=== PATIENT | female | born 1965 | race African-American/Black ===

== ENCOUNTER 2016-08-30 13:15 | Emergency (ER) | payer MEDICAID ==
[~2016-08-30] VITALS: Ht 167.6 cm; Wt 72.6 kg
--- NOTE | 2016-08-30 13:16 | NUR ---
Kin mcnair in [facility] - 08/30/16 at 1414 by [email or web address] Patient to bed 07 to [facility] for evaluation. Side rails up.
[2016-08-30 13:35] VITALS: BP 149/90; PULSE 89; RESP 16; TEMP 97.4; O2SAT 98
--- NOTE | 2016-08-30 14:05 | NUR ---
Patient to ER bed 7 to gown for evaluation. Side rails up. Report given to Megan ROBLES.
--- NOTE | 2016-08-30 14:06 | NUR ---
Pt brought by son, A&O x4, pt c/o L ankle pain and swelling, denies trauma, VS WNL,cap refill <3, no open areas or redness noted.
--- NOTE | 2016-08-30 14:12 | NUR ---
ER Dr. Napoles at bedside examining patient.
[2016-08-30] MEDS ORDERED: ACETAMINOPHEN 500 MG TABLET PO ONE (14:30)
--- NOTE | 2016-08-30 14:52 | NUR ---
US at bedside
--- NOTE | 2016-08-30 15:31 | NUR ---
Dr. Napoles at bedside updating patient
[2016-08-30 16:04] VITALS: BP 137/82; PULSE 86; RESP 16; TEMP 97.4; O2SAT 98
--- NOTE | 2016-08-30 16:04 | NUR ---
Patient given written and verbal discharge instructions and verbalizes understanding. ER MD discussed with patient the results and treatment provided. Patient in stable condition. ID arm band removed. Rx of Tramadol and lasix given. Patient educated on pain management and to follow up with PMD this week. Pain Scale 3/10 Opportunity for questions provided and answered.
== END 2016-08-30 16:04 | disposition home or self-care (01) ==
LOC: SED 13:15
DX: I87.8 Other specified disorders of veins (principal); Z91.041 Radiographic dye allergy status
CPT/HCPCS: 93971; 99284

== ENCOUNTER 2018-10-26 19:40 | Emergency (ER) | payer MEDICAID ==
[~2018-10-26] VITALS: Ht 165.1 cm; Wt 77.1 kg
[2018-10-26 19:56] VITALS: BP_SYST 107
[2018-10-26 23:26] VITALS: BP_SYST 107
== END 2018-10-26 23:26 | disposition home or self-care (01) ==
LOC: SED 19:40
DX: S63.502A Unspecified sprain of left wrist, initial encounter (principal); E78.00 Pure hypercholesterolemia, unspecified; Z91.041 Radiographic dye allergy status; W19.XXXA Unspecified fall, initial encounter; Y93.89 Activity, other specified; Y92.89 Other specified places as the place of occurrence of the external cause; Y99.8 Other external cause status
CPT/HCPCS: 99283

== ENCOUNTER 2020-10-08 08:33 | Emergency (ER) | payer MEDICAID ==
[~2020-10-08] VITALS: Ht 165.1 cm; Wt 77.1 kg
[2020-10-08 08:40] VITALS: BP_SYST 131
--- NOTE | 2020-10-08 08:47 | NUR ---
Patient to ER bed 05 to gown for evaluation. Side rails up.
--- NOTE | 2020-10-08 08:58 | NUR ---
C/C: PATIENT STATES SHE HAS BEEN HELPING A FRIEND REMODEL AN OLDER HOME, STATES SHE HAS BEEN HAVING SOB, SAWYER, SLIGHT NAUSEA X 2 DAYS. ACCORDING TO PATIENT THE HOME WAS TESTED FOR MOLD AND TESTING CAME BACK NEGATIVE. PATIENT ALSO STATES SHE HAS NUMBNESS AND TINGLING TO THE LEFT LOWER LEG RADIATES TO LEFT FOOT.
--- NOTE | 2020-10-08 09:52 | NUR ---
UA COLLECTED AND SENT TO LAB
--- NOTE | 2020-10-08 09:54 | NUR ---
INSTITUTIONAL COOK AT BEDSIDE COMPLETING BLOOD DRAW
--- NOTE | 2020-10-08 09:59 | NUR ---
XRAY PATIENT BROUGHT TO X-RAY DEPT FOR EXAM VIA W/C.
[2020-10-08 10:01] LABS: BASOPHILS % (AUTO) 0.8 % (0.0-2.0); EOSINOPHILS # (AUTO) 0.3 K/uL (0.0-0.4); HEMATOCRIT 38.9 % (36-48); HEMOGLOBIN 13.1 g/dL (12.0-16.0); LYMPHOCYTES % (AUTO) 41.1 % (20.5-51.5); MEAN CORPUSCULAR HEMOGLOBIN 33 pg (27-31); MEAN CORPUSCULAR HGB CONC 34 % (32-36); MEAN CORPUSCULAR VOLUME 97 fL (79.0-98.0); MONOCYTES # (AUTO) 0.5 K/uL (0.0-1.0); MONOCYTES % (AUTO) 9.6 % (1.7-9.3); NEUTROPHILS % (AUTO) 42.5 % (40.0-70.0); PLATELET COUNT (AUTO) 171 K/uL (130-430); RED BLOOD CELL COUNT(AUTO) 3.99 MIL/uL (4.2-6.2); RED CELL DISTRIBUTION WIDTH 12.6 % (9.0-15.0); WHITE BLOOD COUNT (AUTO) 4.8 K/uL (4.8-10.8)
[2020-10-08 10:03] LABS: BILIRUBIN,URINE NEGATIVE (NEGATIVE); BLOOD, URINE NEGATIVE (NEGATIVE); CLARITY/URINE CLEAR (CLEAR); COLOR,URINE YELLOW (YELLOW); GLUCOSE,URINE NEGATIVE (NEGATIVE); KETONES,URINE NEGATIVE (NEGATIVE); LEUKOCYTE ESTERASE ,URINE NEGATIVE (NEGATIVE); NITRITE, URINE NEGATIVE (NEGATIVE); PROTEIN URINE NEGATIVE (NEGATIVE); UROBILINOGEN,URINE 0.2 (0.2-1.0)
--- NOTE | 2020-10-08 10:03 | NUR ---
PATIENT RETURNED FROM X-RAY
--- NOTE | 2020-10-08 10:10 | NUR ---
PIV: 20G PLACED TO LEFT AC, COVERED WITH DRESSING, NO SIGNS OF FILTRATION NOTED. PT TOLERATED WELL.
[2020-10-08 10:13] LABS: CREATININE 0.91 mg/dL (0.55-1.30); POTASSIUM 4.1 mmol/L (3.5-5.1)
[2020-10-08 10:16] LABS: PROTHROMBIN TIME 9.8 SECS (9.5-12.5)
[2020-10-08 10:19] LABS: ALBUMIN 3.7 g/dL (3.4-4.8); TOTAL BILIRUBIN 0.3 mg/dL (0.0-1.0)
[2020-10-08] MEDS ORDERED: NACL 0.9% 1,000 ML IV ONE (10:30)
--- NOTE | 2020-10-08 11:14 | NUR ---
XRAY: AT BEDSIDE PERFORMING IMAGING
[2020-10-08 11:37] VITALS: BP_SYST 119
--- NOTE | 2020-10-08 11:39 | NUR ---
Patient given written and verbal discharge instructions and verbalizes understanding. ER MD discussed with patient the results and treatment provided. Patient in stable condition. ID arm band removed. IV catheter removed intact and dressing applied, no active bleeding.Patient educated on pain management and to follow up with PMD. Pain Scale 0/10 Opportunity for questions provided and answered. Medication side effect fact sheet provided.
== END 2020-10-08 11:39 | disposition home or self-care (01) ==
LOC: SED 08:33
DX: E86.0 Dehydration (principal); R51.9 Headache, unspecified; R10.30 Lower abdominal pain, unspecified; R05 Cough; E78.00 Pure hypercholesterolemia, unspecified; Z88.8 Allergy status to other drugs, medicaments and biological substances
CPT/HCPCS: 36415; 71045; 73660; 80053; 81003; 83605; 85025; 85610; 87040; 87086; 96360; 99284; J7030

== ENCOUNTER 2021-06-19 19:42 | Emergency (ER) | payer MEDICAID ==
[~2021-06-19] VITALS: Ht 167.6 cm; Wt 74.8 kg
[2021-06-19 19:42] VITALS: BP_SYST 156
--- NOTE | 2021-06-19 19:42 | NUR ---
Patient to ER bed 03 to gown for evaluation. Side rails up. Report given to TRAVIS MOON
--- NOTE | 2021-06-19 19:51 | NUR ---
Pt came to ED for right foot pain with possible object x 30 days. Pt states she stepped on glass and remove what she saw, she feels pain when ambulating. Right foot shows slight swelling, no redness or no s/s of infections.
--- NOTE | 2021-06-19 20:05 | NUR ---
ER at bedside examining patient.
[2021-06-19] MEDS ORDERED: HYDR-3917 PO (20:49)
[2021-06-19] MEDS ORDERED: IBUP-1969 PO (20:49)
[2021-06-19 20:53] VITALS: BP_SYST 116
== END 2021-06-19 20:53 | disposition home or self-care (01) ==
LOC: SED 19:42
DX: M79.671 Pain in right foot (principal); E78.00 Pure hypercholesterolemia, unspecified; Z91.041 Radiographic dye allergy status
CPT/HCPCS: 99283

== ENCOUNTER 2021-10-23 15:26 | Emergency (ER) | payer MEDICAID ==
[~2021-10-23] VITALS: Ht 165.1 cm; Wt 77.1 kg
[~2021-10-23 15:26] MED LIST: HYDR-3917 PO; IBUP-1969 PO
--- NOTE | 2021-10-23 16:00 | NUR ---
Patient triaged and placed in waiting room. VSS and patient appears in no acute distress at this time. Accompanied by staff, awaiting available bed, and MD notified of need for MSE.
[2021-10-23 16:10] VITALS: BP_SYST 117
--- NOTE | 2021-10-23 16:14 | NUR ---
Assumed care of pt who came from home c/o dizziness, chest pain, weakness x 3 days. Pt has a hx of hypercholestremia and was told she is prediabetic. Patient VSS and appears in no acute distress. Will continue to monitor and intervene as ordered.
--- NOTE | 2021-10-23 16:25 | NUR ---
ER Dr. Avery at bedside examining patient.
[2021-10-23 16:52] LABS: BILIRUBIN,URINE NEGATIVE (NEGATIVE); BLOOD, URINE NEGATIVE (NEGATIVE); CLARITY/URINE CLEAR (CLEAR); COLOR,URINE YELLOW (YELLOW); GLUCOSE,URINE NEGATIVE (NEGATIVE); KETONES,URINE NEGATIVE (NEGATIVE); LEUKOCYTE ESTERASE ,URINE 1+ (NEGATIVE); NITRITE, URINE NEGATIVE (NEGATIVE); PH,URINE 5.5 (5.0-8.0); PROTEIN URINE NEGATIVE (NEGATIVE); UROBILINOGEN,URINE 0.2 (0.2-1.0)
[2021-10-23 17:07] LABS: BACTERIA,URINE FEW /HPF (None Seen); MUCUS,URINE None Seen /LPF (None Seen); RBC,URINE 0-3 /HPF (0-3)
[2021-10-23 17:36] LABS: CALCIUM 9.3 mg/dL (8.4-11.0); CREATININE 1.01 mg/dL (0.55-1.30); POTASSIUM 3.6 mmol/L (3.5-5.1)
[2021-10-23 17:41] LABS: BASOPHILS % (AUTO) 0.5 % (0.0-2.0); EOSINOPHILS # (AUTO) 0.2 K/uL (0.0-0.4); EOSINOPHILS % (AUTO) 4.1 % (0.0-4.0); HEMATOCRIT 37.1 % (36-48); HEMOGLOBIN 12.4 g/dL (12.0-16.0); LYMPHOCYTES # (AUTO) 2.9 K/uL (1.0-5.5); LYMPHOCYTES % (AUTO) 49.2 % (20.5-51.5); MEAN CORPUSCULAR HEMOGLOBIN 32 pg (27-31); MEAN CORPUSCULAR HGB CONC 34 % (32-36); MEAN CORPUSCULAR VOLUME 96 fL (79.0-98.0); MONOCYTES # (AUTO) 0.5 K/uL (0.0-1.0); MONOCYTES % (AUTO) 8.9 % (1.7-9.3); NEUTROPHILS # (AUTO) 2.2 K/uL (1.8-7.7); NEUTROPHILS % (AUTO) 37.3 % (40.0-70.0); PLATELET COUNT (AUTO) 168 K/uL (130-430); RED BLOOD CELL COUNT(AUTO) 3.86 MIL/uL (4.2-6.2); RED CELL DISTRIBUTION WIDTH 12.6 % (9.0-15.0); WHITE BLOOD COUNT (AUTO) 5.9 K/uL (4.8-10.8)
[2021-10-23 17:42] LABS: ALBUMIN 3.7 g/dL (3.4-4.8); TOTAL BILIRUBIN 0.2 mg/dL (0.0-1.0)
[2021-10-23] MEDS ORDERED: cefTRIAXone 1 GM in LIDOCAINE 1%, 20 ML MDV 2.1 ML IM ONE (18:00)
[2021-10-23] MEDS ORDERED: NITR-85 PO (18:02)
[2021-10-23 18:10] VITALS: BP_SYST 117
--- NOTE | 2021-10-23 18:10 | NUR ---
Patient given written and verbal discharge instructions and verbalizes understanding. ER MD discussed with patient the results and treatment provided. Patient in stable condition. ID arm band removed. Rx of MACROBID given. Patient educated on pain management and to follow up with PMD. Pain Scale 0/10. Opportunity for questions provided and answered. Medication side effect fact sheet provided.
== END 2021-10-23 18:10 | disposition home or self-care (01) ==
LOC: SED 15:26
DX: N39.0 Urinary tract infection, site not specified (principal); R42 Dizziness and giddiness; R07.9 Chest pain, unspecified; Z91.041 Radiographic dye allergy status; Z79.899 Other long term (current) drug therapy
CPT/HCPCS: 99283; 80053; 81000; 85025; 87086; 36415; 96372; J0696; J2001

== ENCOUNTER 2021-11-29 09:42 | Emergency (ER) | payer MEDICAID ==
[~2021-11-29] VITALS: Ht 167.6 cm; Wt 77.1 kg
[~2021-11-29 09:42] MED LIST changes: +NITR-85 PO
[2021-11-29 09:50] VITALS: BP_SYST 121
--- NOTE | 2021-11-29 10:12 | NUR ---
Patient to ER bed 5 to gown for evaluation. Side rails up. Report given to TRAVIS BARAHONA.
[2021-11-29] MEDS ORDERED: ONDANSETRON 4 MG ODT TAB PO ONE (10:15)
[2021-11-29 10:27] LABS: BILIRUBIN,URINE NEGATIVE (NEGATIVE); BLOOD, URINE 1+ (NEGATIVE); CLARITY/URINE CLEAR (CLEAR); COLOR,URINE YELLOW (YELLOW); GLUCOSE,URINE NEGATIVE (NEGATIVE); KETONES,URINE 1+ (NEGATIVE); LEUKOCYTE ESTERASE ,URINE NEGATIVE (NEGATIVE); NITRITE, URINE NEGATIVE (NEGATIVE); PROTEIN URINE NEGATIVE (NEGATIVE); UROBILINOGEN,URINE 0.2 (0.2-1.0)
[2021-11-29] MEDS ORDERED: NACL 0.9% 1,000 ML IV ONE (10:30)
[2021-11-29] MEDS ORDERED: KETOROLAC TROMETHAMINE 15 MG VIAL IVP ONE (10:30)
[2021-11-29 10:41] LABS: BASOPHILS % (AUTO) 0.3 % (0.0-2.0); EOSINOPHILS % (AUTO) 0.1 % (0.0-4.0); HEMATOCRIT 35.1 % (36-48); HEMOGLOBIN 12.3 g/dL (12.0-16.0); LYMPHOCYTES # (AUTO) 0.5 K/uL (1.0-5.5); LYMPHOCYTES % (AUTO) 10.7 % (20.5-51.5); MEAN CORPUSCULAR HEMOGLOBIN 33 pg (27-31); MEAN CORPUSCULAR HGB CONC 35 % (32-36); MEAN CORPUSCULAR VOLUME 95 fL (79.0-98.0); MONOCYTES # (AUTO) 0.7 K/uL (0.0-1.0); NEUTROPHILS # (AUTO) 3.9 K/uL (1.8-7.7); NEUTROPHILS % (AUTO) 75.9 % (40.0-70.0); PLATELET COUNT (AUTO) 151 K/uL (130-430); RED BLOOD CELL COUNT(AUTO) 3.68 MIL/uL (4.2-6.2); RED CELL DISTRIBUTION WIDTH 12.7 % (9.0-15.0); WHITE BLOOD COUNT (AUTO) 5.1 K/uL (4.8-10.8)
[2021-11-29 10:44] LABS: BACTERIA,URINE FEW /HPF (None Seen); MUCUS,URINE 1+ /LPF (None Seen); RBC,URINE 0-3 /HPF (0-3); WBC,URINE 0-3 /HPF (0-3)
[2021-11-29 10:59] LABS: ALBUMIN 3.1 g/dL (3.4-4.8); TOTAL BILIRUBIN 0.1 mg/dL (0.0-1.0)
[2021-11-29 11:14] LABS: CREATININE 0.72 mg/dL (0.55-1.30)
[2021-11-29] MEDS ORDERED: cefTRIAXone 1 GM IVPB PREMIX 50 ML IV ONE (11:15)
[2021-11-29 11:16] LABS: POTASSIUM 2.9 mmol/L (3.5-5.1)
[2021-11-29] MEDS ORDERED: KCL 20 mEq in 100 mL (PREMIX) 100 ML IV ONE (11:30)
[2021-11-29] MEDS ORDERED: POTASSIUM CHLORIDE 20 MEQ TAB.PRT.SR PO ONE (11:30)
[2021-11-29] MEDS ORDERED: CEPH-548 PO (12:41)
[2021-11-29] MEDS ORDERED: PHEN-890 PO (12:41)
[2021-11-29] MEDS ORDERED: ACET-2634 PO (12:41)
[2021-11-29] MEDS ORDERED: POTA-197 PO (12:41)
[2021-11-29 13:06] VITALS: BP_SYST 112
== END 2021-11-29 13:06 | disposition home or self-care (01) ==
LOC: SED 09:42
DX: N12 Tubulo-interstitial nephritis, not specified as acute or chronic (principal); M51.36 Other intervertebral disc degeneration, lumbar region; N39.0 Urinary tract infection, site not specified; E87.6 Hypokalemia; R51.9 Headache, unspecified; R05.9 Cough, unspecified; Z91.041 Radiographic dye allergy status; Z79.899 Other long term (current) drug therapy
CPT/HCPCS: 99285; 74176; 96365; 71045; 96361; 96366; 96375; 80053; 81000; 85025; 87040; 87086; 84484; 36415; 76376; 83605; Q0162; J0696; J1885; J3480; J7030